=== PATIENT | male | born 1955 | race Caucasian/White ===

== ENCOUNTER 2024-01-14 10:08 | Observation (INO) | payer MEDICARE, SELFPAY ==
[2024-01-14] VITALS (13 sets, daily range): BP systolic 100–144; BP diastolic 67–94; BMI 32.5; BMI 31.8
[2024-01-14 04:42] LABS: % Eosinophils 2.7 % (0-6); % Immature Granulocytes 0.5 % (0-0.5); % Monocytes 7.8 % (1.7-9.3); Absolute Basophils 0.1 10^3/uL (0-0.2); Absolute Eosinophils 0.2 10^3/uL (0-0.7); Absolute Lymphocytes 3.9 10^3/uL (1.2-3.4); Absolute Monocytes 0.7 10^3/uL (0.1-0.6); Absolute Neutrophils 3.4 10^3/uL (1.4-6.5); Hematocrit 44.1 % (39.0-52.0); Hemoglobin 14.8 g/dL (13.0-18.0); Mean Corp Hgb Conc. 33.6 g/dL (33.0-37.0); Mean Corpuscular Hgb 29.7 pg (27.0-31.0); Mean Corpuscular Volume 88.6 fL (80.0-94.0); Mean Platelet Volume 9.2 fL (7.4-10.4); Nucleated Red Blood Cells % 0 % (-); Platelet Count 248 10^3/uL (130-400); Red Blood Cell Count 4.98 10^6/uL (4.70-6.10); Red Cell Dist. Width 12.7 % (11.5-14.5); White Blood Cell Count 8.3 10^3/uL (4.8-10.8)
[2024-01-14 04:53] LABS: INR 1.06; PT 13.6 Sec (11.4-14.6)
[2024-01-14 04:56] LABS: Glucose - Point of Care 121 mg/dl (70-99)
[2024-01-14 04:58] LABS: ALT (SGPT) 39 U/L (0-50); AST (SGOT) 56 U/L (17-59); Albumin 4.2 g/dl (3.5-5.0); Alkaline Phosphatase 78 U/L (38-126); Blood Urea Nitrogen 19 mg/dl (9-20); Calcium 8.8 mg/dl (8.4-10.2); Carbon Dioxide 27 mmol/L (22-30); Chloride 103 mmol/L (98-107); Estimated Creatinine Clearance 79 ml/min; Glucose 132 mg/dl (70-99); Potassium 3.5 mmol/L (3.5-5.1); Sodium 139 mmol/L (135-145); Total Bilirubin 0.8 mg/dl (0.2-1.3); Total Protein 6.7 g/dl (6.3-8.2); eGFR > 60.00
[2024-01-14 05:09] LABS: Troponin I < 0.012 ng/ml
--- NOTE | 2024-01-14 07:46 | ED.GENMED ---
History of Present Illness
General
Chief Complaint: Dizziness
Source: patient and spouse
Exam Limitations: none
Time Seen by Provider: 01/14/24 05:17
Nursing documentation reviewed up to this point in time: agreed with
Travel History
Have you had any contact with someone who has COVID-19?: No
Do you have any symptoms of coronavirus? Fever > 100 degrees, chills, cough, shortness of breath, sore throat, loss of taste or smell, muscle aches, or headache?: No
History of Present Illness
History of Present Illness:
68-year-old male with a past medical history of hypertension, hyperlipidemia, atrial fibrillation who presents to the emergency room for evaluation of dizziness. Of note, patient reports that he had newly diagnosed A-fib last week�he says that he
was apparently in A-fib for 5 days his wheel molder told him and he was started on Eliquis few days ago. He sees Dr. Patel through [facility]. He says that tonight he woke up suddenly with significant dizziness which prompted visit to the
emergency room. He describes a room spinning sensation. He says he had associated balance difficulties. Does not have any significant nausea and has not any vomiting. Denies any headache. Denies any loss of vision or change in his speech. He
says he did have some transient left upper extremity numbness that resolved. Denies any weakness in his extremities. He denies any similar symptoms in the past. He denies any recent illness or URI type symptoms. He denies any trauma to the head.
Past History
Past History
ED Past Medical History: HTN and Hypercholesterolemia
ED Past Surgical History: Other (Hernia repair)
Social History
Tobacco: Non-smoker
Alcohol: Occasional
Personal:
Living: with family
Employment: Employed
Family History
Family History: Other (Mother with history of atrial fibrillation)
Review of Systems
Review of Systems
All Other Systems: ROS reviewed and negative except as documented in HPI and ROS
Constitutional: Denies fever or chills
EENT: Denies sore throat or runny nose
Respiratory: Denies cough or trouble breathing
Cardiac: Denies chest pain or palpitations
ABD/GI: Denies abdominal pain, nausea or vomiting
: Denies flank pain
Musculoskeletal: Denies neck pain or back pain
Neurological: Reports dizzy; Denies headache, weakness or numbness
Phy Exam
Physical Exam
Physical Exam:
General: Awake, alert, oriented x3; no acute distress
Head: Normocephalic, atraumatic
Eyes: Conjunctiva normal, EOMI without nystagmus, pupils equal round reactive to light bilaterally, visual corral are intact
Throat: Airway intact, handling secretions
Neck: Trachea midline, supple without meningismus
Lungs: Clear to auscultation bilaterally, no wheezing, rales, rhonchi
Heart: Regular rate and rhythm, no murmurs, gallops, or rubs
Abd: Soft, non distended, nontender
Neuro: Cranial nerves intact 2 through 12, speech fluid without dysarthria or aphasia, no limb ataxia, motor and sensory function intact and symmetric upper and lower extremities
Skin: no rash
Extremities: No edema in extremities, equal pulses in all extremities
Scores
NIH Stroke Score
Level of Consciousness: 0 - Alert
LOC Questions: 0-Answers both correctly
LOC Commands: 0-Performs both correctly
Best Horizontal Gaze: 0-Normal
Visual Corral: 0=Normal, no visual loss
Facial Palsy: 0=Normal, symmetrical
Motor - Right Arm: 0=No drift 10 seconds
Motor - Left Arm: 0=No drift 10 seconds
Motor - Right Le-No drift 5 seconds
Motor - Left Le-No drift 5 seconds
Limb Ataxia: 0-Absent
Sensation: 0-Normal
Best Language: 0-No aphasia
Dysarthria: 0-Normal
Extinction and Inattention: 0-No abnormality
Total Score:: 0
Thrombolytic Contraindication
Inclusion and Exclusion criteria reviewed: Yes
Reasons for NON-Tx with Thrombolytics ABSOLUTE Exclusions: Patient taking oral anticoagulant and last dose within 48 hours
Heart Failure Risk
Heart Failure Risk Score: Not Applicable
Heart Score for Chest Pain Patients
STEMI patient?: Not applicable
Withdrawal Assessment of Alcohol
Withdrawal Assessment Completed?: Not applicable
Course
Orders/Labs/Results
Orders:
Orders
01/14/24 04:09
Electrocardiogram (*1) Urgent
Reason for Study: Atrial Fibrillation
01/14/24 04:10
EKG- Treatment ONCE
01/14/24 04:33
Complete Blood Count/With Diff Urgent
Comprehensive Metabolic Panel Urgent
INR [Prothrombin Time] Urgent
Troponin I Urgent
01/14/24 05:15
ECG [Electrocardiogram (*1)] Urgent
Reason for Study: Chest Pain
Cardiology Consult: Unknown
01/14/24 05:16
EKG- Treatment ONCE
01/14/24 05:26
CT Head & Neck Angio W/wo IV Urgent
Comment:
Reason For Exam: dizziness
01/14/24 07:07
NEUROLOGY CONSULT Urgent
Consulting Provider: Wei Thomson
Was physician already notified: Yes
Aspirin 325 mg PO NOW STA
Clopidogrel Bisulfate [Plavix] 75 mg PO NOW STA
Abnormal Lab Results
01/14/24 01/14/24
04:33 04:55
Absolute Lymphs (auto) 3.9 H 10^3/uL
(1.2-3.4)
Absolute Monos (auto) 0.7 H 10^3/uL
(0.1-0.6)
Neutrophils % 41.0 L %
(42.2-75.2)
Glucose 132 H mg/dl
(70-99)
POC Glucose 121 H mg/dl
(70-99)
01/14/24 04:33
01/14/24 04:33
Vital Signs
Initial and Last Documented VS:
Initial Vital Signs
Temp Pulse Resp BP Pulse Ox
36.8 C 76 16 144/94 99
01/14/24 04:15 01/14/24 04:15 01/14/24 04:15 01/14/24 04:15 01/14/24 04:15
Last Documented Vital Signs
Temp Pulse Resp BP Pulse Ox
36.8 C 68 20 114/78 95
01/14/24 04:15 01/14/24 06:29 01/14/24 06:29 01/14/24 06:29 01/14/24 06:29
MDM/Problems Addressed
Differential Diagnosis Includes:
Peripheral vertigo including BPPV, M�ni�re's disease, labyrinthitis; higher suspicion for central vertigo given recent new onset A-fib and lack of reproducible nystagmus
MDM/Problems Addressed:
68-year-old male with history as documented notable for newly diagnosed A-fib recently presents with acute onset dizziness this evening associate with difficulty balancing and transient left upper extremity numbness. Last normal before bed, patient
is also on oral anticoagulation and so [facility]. NIH stroke scale 0. Exam as above. Plan to place an IV check labs including a CBC and a CMP. Will check an EKG. Will send for a CT head and CTA head
and neck. Reassess after the above.
Labs reviewed: CBC unremarkable, CMP no clinically significant abnormalities. EKG shows sinus rhythm. CTA head and neck negative for any acute abnormalities. Clinical concern would be for cerebellar stroke. Will dose with aspirin and Plavix.
Discussed with neurology for consultation. Discussed with hospitalist for admission.
Chronic conditions affecting care:
Atrial fibrillation�higher risk for stroke
*Radiology
Radiology exam reviewed: radiology read reviewed
*Pulse Oximetry
Patient hypoxic: no
*EKG
Interpreted by ED Provider?: Yes
Heart Rate: 65
Rate: normal
Rhythm: sinus
Kohler: normal axis
Interval: normal interval
QRS Pattern: normal QRS
Ischemia: no ischemia
*Critical Care Note
Total Time (30-74mins, 75-104mins- exclusive of procedures): Not Applicable
Data Reviewed
Source: patient and spouse
Patient Management
Discussion with other providers: Hospitalist (Discussed with hospitalist) and Hearing Stenographer (Discussed with neurology)
Escalation/DeEscalation of care consider admission/obs:
Admission indicated
ED Attending Note
-
Portions of this chart may have been created with voice recognition software.� Occasional wrong word or��sound alike� substitutions may have occurred due to the inherent limitations of voice recognition software.
Discharge Plan
Departure
Patient Disposition: Admit
Date of Disposition: 01/14/24
Time of Disposition: 07:09
Admit to doctor: Arlene
Presentation/result/management discussed w/ accepting MD/DO: Hospitalist
Discharge Problem:
Dizziness
Prescriptions:
No Action
rosuvastatin 40 mg Tablet
40 mg PO DAILY
Eliquis
1 tab PO BID
Rx Instructions:
unsure of dose
Vitamin D3
100 mg PO DAILY
vitamin K2
1 tab PO DAILY
atenolol 50 mg Tablet
50 mg PO BID
Referrals:
Navarro Castañeda Jr., MD [Family Provider] -
Interventions
Interventions:
*Risk Screen - Suicide Last Done: 01/14/24 04:15
*General Assessment Last Done: 01/14/24 04:15
*Neglect/Abuse Screening Last Done: 01/14/24 04:15
ED- Fall Risk Assessment Last Done: 01/14/24 04:39
*ED COVID-19 Vaccine History Last Done: 01/14/24 04:15
ED- Neurological Assessment Last Done: 01/14/24 04:39
ED- Cardiac Assessment Last Done: 01/14/24 04:39
Discharge Date and Time
Print Language: JORDANIAN
--- NOTE | 2024-01-14 07:56 | CON.NEURO4 ---
Consultation - Neurology 4
-
CONSULTING PHYSICIAN: Shahab Thomson
REFERRING PHYSICIAN: ER
DICTATED BY: Shahab Thomson
DATE/TIME OF REQUEST: 01/14/24
DATE/TIME OF CONSULTATION: 01/14/24
Reason for Consultation: Dizziness, concern for stroke
History of Present Illness:
Patient is a 68-year-old man with past ministry of atrial fibrillation on apixaban, because of dizziness and walking difficulty episode beginning when getting out of bed around this morning around 3 AM.
Patient reports that he had finding of atrial fibrillation at a recent doctor's office visit based on EKG and was started on a atenolol as well as apixaban last week around Monday. Earlier last week he had also had a presumed GI viral illness
with vomiting and diarrhea abdominal pain that is mostly resolved.
Patient awoke this morning at 3 AM and when he got out of bed to go the bathroom noted that his walking was very abnormal and he also had a sensation of vertigo and dizziness, he collected himself and waited around 30 minutes and symptoms seem to
somewhat hong, but were still concerning so they came to the ER for evaluation. Patient notes chronic tinnitus but no recent hearing changes or brand-new tinnitus or hearing loss. No unusual hiccups. He feels that symptoms have improved at this
point and denies any headache diplopia dysarthria unilateral weakness or paresthesia. He has not had anything like this happen before no history of TIA or stroke. Since has been taking Eliquis he has stopped the previous aspirin 81 mg daily.
Patient had had a procedure for atrial fibrillation around 2 years ago (ablation vs cardioversion) and had come off of anticoagulation but due to finding of recurrent new atrial fibrillation was placed back on apixaban last week.
Past Medical History: Hypertension, hyperlipidemia, atrial fibrillation
Surgical History: Hernia repair
Family History: Non-contributory
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
Allergies: No known drug allergies
Review of Symptoms:
Patient denies any fever, headache, chest pain, shortness of breath, GI or symptoms.
Physical Exam:
Neurologic Examination:
The patient is awake, alert and oriented x 3. He is able to follow commands and answer questions appropriately. There is no aphasia or dysarthria. On cranial nerve assessment, pupils are 3 mm bilateral, round and reactive to light and
accommodation. Visual tovar are full. Extraocular movements are intact. Facial sensations are intact and bilaterally symmetrical, there is no facial asymmetry. Hearing is intact bilaterally to normal conversation volume. Tongue palate and uvula
are midline. Sternocleidomastoid strengths are full bilaterally. Motor strengths are 5/5 bilateral upper and lower extremities on medical research [place] scale. There is no drift or involuntary movement noted. Deep tendon reflexes are 2+ bilateral
upper and lower extremities and Babinski is absent bilaterally. Sensations of pain, touch, temperature and vibration are intact and bilaterally symmetrical. There was no extinction noted on double simultaneous stimulation. Coordination is intact by
finger to nose bilaterally.
Neuro Imaging: MRI brain with no acute or chronic infarcts
CTA head and neck with no significant vertebral or carotid stenosis, no intracranial occlusion, aneurysm or vessel malformations
Impressions
Sudden onset dizziness and vertigo happening after getting up out of bed, resolved symptoms with normal neurologic examination and normal gait and normal brain MRI without any acute stroke. Recent GI illness. Suspect this is less likely to be TIA
or symptoms of atrial fibrillation and more likely peripheral vertigo or orthostatic hypotension after the recent GI illness.
Recommendations:
1. Would stop aspirin and clopidogrel and okay to resume apixaban at his previous 5 mg twice daily dosing today
2. Goal normotension
3. Discussed signs and symptoms of stroke
4. No further workup or monitoring from a neurologic perspective recommended no barriers to discharge from my standpoint
Discussed patient care with: Patient and his , hospitalist
[2024-01-14] MEDS: ASPIRIN 325 MG PO (08:02)
--- NOTE | 2024-01-14 09:03 | HPS.HSE ---
Family Physician
-
Family Physician: Navarro Castañeda Jr., MD
Chief Complaint
-
dizziness and weakness
History of Present Illness
Patient 68-year-old male with history hypertension, hyperlipidemia, atrial fibrillation, came to the hospital with dizziness. Patient woke up this morning with sudden onset of dizziness, described as room spinning around his head associated with
balance difficulties, no nausea or vomiting, no headache. He complains of numbness in his left upper extremity but he says that these are chronic symptoms. He denies any focal weakness. He feels back to his baseline. He denies any fevers or
chills. He denies any chest pain or shortness of breath. He did have some nausea vomiting likely GI viral illness recently but resolved. He tells me he has A-fib about 3 years ago and had recurrence of complaints recently and has been managed by
his outpatient online media director. He recently increased his doses of atenolol and started on Eliquis by his cardiology advice. In the ED, CT of the head and neck unremarkable. Neurology consulted. Brain MRI ordered. He was referred to hospitalist
for further evaluation.
Medical History
Past Medical History
Past Medical History: Reports Other (Hypertension, hyperlipidemia, atrial fibrillation.)
Past Surgical History: Reports None
Social History
Tobacco: Non-smoker
Alcohol: None
Drug: None
Family History
Family History: Not pertinent
Allergies / Home Medications
Allergies reflects when Allergies were last updated in [employer].
Home Medications with original date entered in [employer]
Allergy/Medication List:
Allergies
Allergy/AdvReac Type Severity Reaction Status Date / Time
No Known Allergies Allergy Unverified 06/08/23 22:07
Home Medications
Eliquis 1 tab PO BID 01/14/24
Vitamin D3 100 mg PO DAILY 01/14/24
atenolol 50 mg tablet 50 mg PO BID 01/14/24
rosuvastatin 40 mg tablet 40 mg PO DAILY 01/14/24
vitamin K2 1 tab PO DAILY 01/14/24
Review of Systems
-
A 12 point ROS was completed and negative except as noted: Yes
Physical Exam
Vital Signs
Vital Signs
Temp Pulse Resp BP Pulse Ox
98.2 F 62 18 117/86 97
01/14/24 04:15 01/14/24 08:15 01/14/24 08:15 01/14/24 08:00 01/14/24 08:00
Physical exam:
General: No acute distress
HEENT: Normocephalic, Atraumatic and Moist Mucous Membranes
Respiratory: Clear to Auscultation; Negative Wheezes, Rales or Rhonchi
Cardiac: Regular Rhythm and S1/S2, mild systolic murmur
GI: Soft, Nontender and Nondistended
Musculoskeletal: No Clubbing, No Cyanosis and No Edema
Neuro: Awake, Alert and Oriented, no gross neurological deficits.
Psych: Calm
Physical Exam
General: Other
Laboratory Results
-
01/14/24 04:33
01/14/24 04:33
Laboratory Results
PT 13.6 Sec (11.4-14.6) 01/14/24 04:33
INR 1.06 01/14/24 04:33
Total Bilirubin 0.8 mg/dl (0.2-1.3) 01/14/24 04:33
AST 56 U/L (17-59) 01/14/24 04:33
ALT 39 U/L (0-50) 01/14/24 04:33
Alkaline Phosphatase 78 U/L (38-126) 01/14/24 04:33
Troponin I < 0.012 ng/ml 01/14/24 04:33
Impression/Plan
-
IMPRESSION:
Patient 68-year-old male with history of A-fib, hypertension, hyperlipidemia, presented to the hospital with dizziness. Symptoms are not consistent with acute stroke. Patient might have symptoms related to dehydration with recent GI viral illness
or alternatively due to increased doses of his beta-blockers or possible orthostatic. He is currently in normal sinus rhythm.
Impression:
Dizziness, nonspecific
Conditions prior to presentation:
Hypertension
Hyperlipidemia
Paroxysmal atrial fibrillation
PLAN:
Observation status
Given IV fluids in the ED. Encourage oral intake from now on.
Initially aspirin Plavix and now MRI of the brain back and no acute stroke so we will restart Eliquis.
Seen and reviewed CT of the head and neck and MRI of the brain.
Seen and reviewed twelve-lead EKG.
Appreciate neurology consult
Neurology cleared him for discharge today
Cardiology consulted and they recommend to decrease atenolol back to 50 mg once a day
Cardiology also cleared her for discharge today
He was observed here in on staff development manager and if he feels asymptomatic, plan to discharge home today
DVT prophylaxis with Lovenox SQ
CODE STATUS full code
[2024-01-14 09:19] LABS: HDL Cholesterol 40 mg/dl; LDL Cholesterol, Calculated 61 mg/dl; Total Cholesterol 119 mg/dl (50-199); Triglyceride 93 mg/dl (10-149); Very Low Density Lipoprotein 18 mg/dl (0-30)
[2024-01-14 11:40] LABS: Glycohemoglobin (HgbA1c) 5.8 % (4.0-5.6)
--- NOTE | 2024-01-14 13:44 | CM ---
CM following re: discharge planning.
CM consulted to assist pt with discharge planing.
Reviewed pt's chart, met with pt in ED and pt's spouse at bedside.
Pt is a 68 year old male, admitted with OBS status and primary dx of R/O CVA. OBS status explained to pt and his spouse, they expressed their understanding, signed WALLACE letter placed in CM office binder, pt has a copy.
Pt reports he lives with spouse in a 2SH townhouse, has 4 supportive children. 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 Pt expressed his desire to return back home at discharge and he feels he will not have any
physical limitation.
PT and OT will evaluate the pt to determine a level of are at discharge.
PCP: Navarro Castañeda
Pharmacy: [facility].
D/C plan: home with anticipated no needs. Spouse to transport at discharge.
CM will follow with discharge plan updates as hospitalization progresses
--- NOTE | 2024-01-14 14:31 | CON.CAR ---
Consultation
Consultation Request
Date/Time Consultation Requested: 01/14/24 7:00AM
Date/Time Consultation Performed: 01/14/24 1:00PM
Requesting Provider: Dr. Mahmood
Performing Provider: Dr. Wynn
Reason for Consultation: Afib
Medical History
-
Chief Complaint: dizziness
History of Present Illness:
68-year-old male with past medical history of hypertension, hyperlipidemia and paroxysmal atrial fibrillation who follows at [facility] presents with dizziness. He states he has a remote history of paroxysmal atrial fibrillation but had not
had any in 2 years until about a week ago. He started having some palpitations and felt his A-fib again. He had no chest pains or shortness of breath. He called his tray filler at [place] who recommended to increase his atenolol to 50 mg twice
daily. He was also placed on Eliquis. He felt well although he did have a mild dizziness 2 days ago. He played 18 holes of golf yesterday and felt well then early in the morning he felt very weak and dizzy and lightheaded. He felt like he was
about to pass out and had near syncope. He states he did convert back to sinus rhythm yesterday as well. He presented to the emergency room with weakness and lightheadedness. His blood pressure was stable upon arrival.
Past Medical History
Past Medical History: Arrhythmias (Paroxysmal atrial fibrillation), HTN and Hypercholesterolemia
Past Surgical History: None
Social History
Tobacco: Non-Smoker
Alcohol: Occasional
Drug: None
Personal:
Living: With Family
Family History
Family History: Hypertension
Allergies / Home Medications
Allergy/AdvReac Type Severity Reaction Status Date / Time
No Known Allergies Allergy Unverified 06/08/23 22:07
�Medication �Instructions �Recorded �Confirmed �Type
apixaban 5 mg tablet (Eliquis) 5 mg PO BID 01/14/24 01/14/24 History
ascorbic acid (vitamin C) 500 mg 500 mg PO DAILY 01/14/24 01/14/24 History
tablet (Vitamin C)
atenolol 50 mg tablet 50 mg PO BID 01/14/24 01/14/24 History
rosuvastatin 20 mg tablet (Crestor) 20 mg PO QPM 01/14/24 01/14/24 History
vitamin D3 125 mcg (5,000 1 cap PO DAILY 01/14/24 01/14/24 History
unit)-vitamin K2 90 mcg capsule
Review of Systems
-
History Source: Patient
Constitutional: Fatigue
EENT: No Symptoms
Respiratory: No Symptoms
Cardiac: Palpitations
Abdomen/GI: No Symptoms
: No Symptoms
Musculoskeletal: No Symptoms
Skin: No Symptoms
Neurological: Dizzy
Endocrine: No Symptoms
Hematologic/Lymphatic: No Symptoms
Physical Exam
Vital Signs
Temp Pulse Resp BP Pulse Ox
98.2 F 55 12 100/67 97
01/14/24 04:15 01/14/24 14:00 01/14/24 14:00 01/14/24 14:00 01/14/24 08:00
Lab Results
01/14/24 04:33
01/14/24 04:33
Troponin I < 0.012 ng/ml 01/14/24 04:33
Physical Exam
General: Well Developed and Well Nourished
HEENT: Normocephalic and Anicteric
Respiratory: Clear and Non Labored Respirations
Cardiac: S1/S2, Regular Rhythm and Murmur (10/21 syst LSB)
GI: Soft, Non Tender and Non Distended
Musculoskeletal: No Edema
Skin: Warm and Dry
Neuro: AO x 3
Psych: Calm
Impression / Plan
-
Assess:
Paroxysmal atrial fibrillation
Dizziness/near syncope
Hypertension
Hyperlipidemia
MRI of the brain with no acute stroke. Minor white matter changes
CTA of the neck/head: No significant carotid or vertebral plaque or stenosis
Plan:
He presents with an episode of dizziness/near syncope. He was having episodes of paroxysmal atrial fibrillation but these have resolved and he is back in sinus rhythm. MRI of the brain overall unremarkable with no significant stroke
I would decrease his atenolol back to 50 mg once daily. If okay with neurology and I would stop aspirin and Plavix and restart his Eliquis 5 mg p.o. twice daily.
From a cardiac standpoint he is stable to be discharged. He has an appointment with his outpatient tray filler at [facility] this week to further discuss management of his atrial fibrillation.
Data Reviewed
-
EKG: Tracing Personally Visualized and interpreted
Radiology: Report Reviewed by me
Medical Tests (Nuc Med, Echo etc): Report Reviewed by me
Labs: Labs Reviewed by me
--- NOTE | 2024-01-14 14:54 | W.DCSUMMARY ---
Discharge Summary
Discharge Data
Date of Admission: 01/14/24
Date of Discharge: 01/14/24
-
Pending Results: No
Hospital Course
Patient 68-year-old man with history of hypertension, hyperlipidemia, paroxysmal atrial fibrillation presented to the hospital with dizziness. Patient had transient episode of dizziness and had workup including MRI of the brain negative for acute
stroke. He was seen by neurology and cardiology today. Also received some IV fluid hydration in the setting of possible gastroenteritis recently. Neurology recommended initially aspirin Plavix but after MRI results back they recommended to go
back to his Eliquis. Cardiology saw the patient and recommended to decrease his doses of atenolol from twice a day to once a day. Otherwise neurology and cardiology both cleared him for discharge today. He feels back to baseline at this point.
He is going to be discharged in stable condition today. He is to follow-up with PCP and he is on outpatient parts and service manager (I placed our parts and service manager and neurologist names on discharge in case he would like to follow-up with them).
Discharge Plan
-
Patient Disposition: Home (Routine Discharge)
Discharge Diagnosis/Procedures: Dizziness. Paroxysmal atrial fibrillation.
Diet: Low Cholesterol
Activity: As tolerated
Driving Restrictions: As prior to admission
Blood Work: Please PCP to order CBC, BMP within 1 week
Referrals:
Wei Thomson MD [Active] - in one to two months
Syed Wynn MD [Active] - in one to two months
Navarro Castañeda Jr., MD [Family Provider] - in less than 1 week
Prescriptions:
Continued
Eliquis 5 mg Tablet
5 mg PO BID
Rx Instructions:
unsure of dose
vitamin D3-vitamin K2 125-90 mcg Capsule
1 cap PO DAILY
ascorbic acid (vitamin C) [Vitamin C] 500 mg Tablet
500 mg PO DAILY
rosuvastatin [Crestor] 20 mg Tablet
20 mg PO QPM
Changed
atenolol 50 mg Tablet
50 mg PO DAILY Qty: 0 0RF
Discharge Orders:
Discharge Patient (As Directed); Ordered 01/14/24
Ordered By: Adan Mahmood
Discharge Date and Time
Print Language: CENTRAL AFRICAN
--- NOTE | 2024-01-14 15:40 | CM ---
Addendum entered by Sarah Rodgers 01/14/24 15:44:
Signed IMM on Chart
Original Note:
Met with patient at bedside
Plan: discharge to home without services; family will provide tranport home
--- NOTE | 2024-01-14 16:21 | PTCARENOTE ---
1530 Received patient from ED AAOx3. NIH-0. Pt oriented to room. RN received phone call from Dr. Mahmood that patient was cleared to be discharged. IV site removed. Tele-removed and patient given discharge instructions.
== END 2024-01-14 16:15 | disposition home or self-care (01) ==
LOC: 4 EAST ACU 10:08
PROVIDERS: ADMITTING PHYSICIAN Hospitalist; CONSULT PHYSICIAN Internal Medicine Cardiovascular Disease; CONSULT PHYSICIAN Student in an Organized Health Care Education/Training Program; EMERGENCY PHYSICIAN Emergency Medicine; FAMILY PHYSICIAN Family Medicine
DX: R42 Dizziness and giddiness (principal); E78.00 Pure hypercholesterolemia, unspecified; I10 Essential (primary) hypertension; I48.0 Paroxysmal atrial fibrillation; Z79.01 Long term (current) use of anticoagulants; Z79.899 Other long term (current) drug therapy
CPT/HCPCS: 70496; 70498; 70551; 80053; 80061; 82962; 83036; 84484; 85025; 85610; 93005; 99285; G0378; Q9967

== ENCOUNTER 2024-02-07 08:01 | Emergency (ER) | payer MEDICARE, SELFPAY ==
[2024-02-07 08:02] VITALS: BMI 30.4
[2024-02-07 08:03] VITALS: BP 110/78
--- NOTE | 2024-02-07 08:13 | ED.GENMED ---
History of Present Illness
<Khalida Aparicio LOT TECHNICIAN - Last Filed: 02/08/24 08:08>
General
Chief Complaint: Back Pain
Source: patient
Exam Limitations: none
Time Seen by Provider: 02/07/24 08:12
Nursing documentation reviewed up to this point in time: agreed with
Travel History
Have you had any contact with someone who has COVID-19?: No
Do you have any symptoms of coronavirus? Fever > 100 degrees, chills, cough, shortness of breath, sore throat, loss of taste or smell, muscle aches, or headache?: No
History of Present Illness
History of Present Illness:
68-year-old male with history of A-fib on Eliquis, HTN, HLD presents stating for past week has had off and on mid chest heaviness, mid back pain and since 9 p.m.last night 'numbness' in both arms. The back and chest pains are intermittent,
'stabbing, burning, squeezing' now 5/10, arms currently feel 'numb' L > R. Pains at max were 8/10 while driving yesterday. No aggravating or relieving factors. Denies abd pain, n/v/d/c.
For past week, getting up in middle of night to BR Left leg 'goes numb.'
AGOSTO past 3 days. He did play golf yesterday and felt 'I needed to catch my breath' while walking.
Plays tennis 3 x a week and felt well playing 3 days ago.
History of a fib 2.5 years ago which resolved on its own, was on Baby ASA. 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
Meds: Eliquis
Metoprolol 50 mg daily upped to BID 10/2023
Rosuvastatin 10 mg OD
Past History
<Khalida Aparicio LOT TECHNICIAN - Last Filed: 02/08/24 08:08>
Past History
ED Past Medical History: Arrthythmia (A fib), HTN and Hypercholesterolemia
ED Past Surgical History: Other (Hernia repair)
Social History
Tobacco: Non-smoker
Alcohol: Occasional
Personal:
Living: with family
Employment: Employed
Family History
Family History: Other (Mother with history of atrial fibrillation)
Review of Systems
<Khalida Aparicio LOT TECHNICIAN - Last Filed: 02/08/24 08:08>
Review of Systems
Allergies reviewed?: Yes
All Other Systems: ROS reviewed and negative except as documented in HPI and ROS
Constitutional: Reports no symptoms
EENT: Reports no symptoms
Respiratory: Reports trouble breathing (feels he has to take deep breaths when walking past week)
Cardiac: Reports chest pain; Denies diaphoresis, palpitations or syncope
ABD/GI: Denies abdominal pain, nausea, vomiting, diarrhea or anorexia
: Denies dysuria, frequency or difficulty voiding
Musculoskeletal: Reports no symptoms
Skin: Reports no symptoms
Neurological: Reports weakness and numbness (both arms since last p.m. L leg intermittently past 2 weeks); Denies headache
Phy Exam
<Khalida Aparicio, LOT TECHNICIAN - Last Filed: 02/08/24 08:08>
Physical Exam
Physical Exam:
GENERAL: No acute distress. A&Ox3.
CONSTITUTIONAL: Afebrile.
EYES: clear, conjunctivae normal
Neck: Supple
ENMT: moist mucus membranes, Pharynx nl
RESPIRATORY: Regular respirations, nonlabored, lungs clear.
CARDIOVASCULAR: Regular rate and rhythm, no murmurs, no rubs. Radial and pedal pulses normal. Extremities warm, pink.
GI: Soft, nontender, normal BS
MUSCULOSKELETAL: Moves with ease. Well perfused. No edema
SKIN: Warm, dry, pink
PSYCH: Normal mood and affect. Well kept, interactive and appropriate
NEUROLOGIC: Awake, alert and oriented. No focal neurological deficits
Course
<Khalida Aparicio NP - Last Filed: 02/08/24 08:08>
Orders/Labs/Results
Orders:
Orders
02/07/24 08:04
ECG [Electrocardiogram (*1)] Urgent
Reason for Study: Other
Other Reason for Exam: back pain
02/07/24 08:05
EKG- Treatment ONCE
02/07/24 08:47
CT Chest/abd/pelvis Angio W/wo Urgent
Comment:
Reason For Exam: numbness arms, CP and mid back pain
02/07/24 08:49
0.9% Sodium Chloride 500 ml [Nss] 500 ml IV BOLUS
02/07/24 09:18
Complete Blood Count/With Diff Urgent
Comprehensive Metabolic Panel Urgent
Troponin I Urgent
02/07/24 09:18
02/07/24 09:18
Vital Signs
Initial and Last Documented VS:
Initial Vital Signs
Temp Pulse Resp BP Pulse Ox
97.9 F 57 18 110/78 93
02/07/24 08:03 02/07/24 08:03 02/07/24 08:03 02/07/24 08:03 02/07/24 08:03
Last Documented Vital Signs
Temp Pulse Resp BP Pulse Ox
97.9 F 53 20 137/91 97
02/07/24 08:03 02/07/24 11:30 02/07/24 11:30 02/07/24 11:14 02/07/24 11:14
Manager Unix consulted with Physician
Manager Unix consulted with physician?: Yes
Name of Physician Consulted: Pamela
<Mauricio Santiago MD - Last Filed: 02/07/24 08:52>
Orders/Labs/Results
Orders:
Orders
02/07/24 08:04
ECG [Electrocardiogram (*1)] Urgent
Reason for Study: Other
Other Reason for Exam: back pain
02/07/24 08:05
EKG- Treatment ONCE
02/07/24 08:47
CT Chest/abd/pelvis Angio W/wo Urgent
Comment:
Reason For Exam: numbness arms, CP and mid back pain
02/07/24 08:49
0.9% Sodium Chloride 500 ml [Nss] 500 ml IV BOLUS
02/07/24 09:18
Complete Blood Count/With Diff Urgent
Comprehensive Metabolic Panel Urgent
Troponin I Urgent
02/07/24 09:18
02/07/24 09:18
Vital Signs
Initial and Last Documented VS:
Initial Vital Signs
Temp Pulse Resp BP Pulse Ox
97.9 F 57 18 110/78 93
02/07/24 08:03 02/07/24 08:03 02/07/24 08:03 02/07/24 08:03 02/07/24 08:03
Last Documented Vital Signs
Temp Pulse Resp BP Pulse Ox
97.9 F 53 20 137/91 97
02/07/24 08:03 02/07/24 11:30 02/07/24 11:30 02/07/24 11:14 02/07/24 11:14
<Khalida Aparicio, LOT TECHNICIAN - Last Filed: 02/08/24 08:08>
MDM/Problems Addressed
Differential Diagnosis Includes:
GA, cervical radiculopathy, AAA, musculoskeletal pain
MDM/Problems Addressed:
68-year-old male with history of A-fib on Eliquis, HTN, HLD presents stating for past week has had off and on mid chest heaviness, mid back pain and since 9 p.m.last night 'numbness' in both arms. The back and chest pains are intermittent,
'stabbing, burning, squeezing' now 10, arms currently feel 'numb' L > R. Pains at max were 8/10 while driving yesterday. No aggravating or relieving factors. Denies abd pain, n/v/d/c.
For past week, getting up in middle of night to BR Left leg 'goes numb.'
AGOSTO past 3 days. He did play golf yesterday and felt 'I needed to catch my breath' while walking.
Plays tennis 3 x a week and felt well playing 3 days ago.
History of a fib 2.5 years ago, which resolved on its own, was on Baby ASA. 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
NAD
Case discussed with Dr. Santiago who examined pt.
EKG sinus bradycardia
10:00 AM
CBC normal
CMP normal
Troponin normal.
11:15 AM
CTA chest abdomen pelvis radiology report read: IMPRESSION:
1. There is no CT evidence of aneurysm or dissection.
2. There is a small right hepatic cyst.
3. There is a large left renal cyst
Copies of all results given to patient
Patient has an appointment with his primary next month and he was going to get an order for physical therapy for his neck
Now that medically cleared, I provided patient with an order for physical therapy here at [facility] he will call and make an appointment.
Dr. Santiago agrees with assessment and plan
<Khalida Aparicio NP - Last Filed: 02/08/24 08:08>
*EKG
Interpreted by ED Provider?: Yes
EKG Intrepretation Date: 02/07/24
Rate: bradycardiac
Rhythm: sinus
[place]: normal axis
Interval: normal interval
QRS Pattern: normal QRS
Ischemia: no ischemia
*Critical Care Note
Total Time (30-74mins, 75-104mins- exclusive of procedures): Not Applicable
ED Attending Note
<Khalida Aparicio NP - Last Filed: 02/08/24 08:08>
-
Portions of this chart may have been created with voice recognition software.� Occasional wrong word or��sound alike� substitutions may have occurred due to the inherent limitations of voice recognition software.
<Mauricio Santiago MD - Last Filed: 02/07/24 08:52>
ED Attending Note
Patient seen and examined by attending physician: Yes
ED Attending Note:
I have seen and evaluated the patient with a [id number] encounter. I have spoken to the advance practicer provider and involved in the medical history, the physical exam, medical decision making.
Evaluation and management service: agree unless noted differently below.
Results interpretation: agree unless noted differently below.
Focused HPI: 68-year-old male with a past medical history of hypertension, hyperlipidemia, atrial fibrillation on Eliquis who presents to the emergency department for evaluation of chest pain, shortness of breath, back pain and arm numbness.
Patient reports onset of symptoms few days ago and they have been essentially constant since that time. He reports heaviness in his chest with squeezing sensation radiating to his upper back (intrascapular). He reports associated shortness of
breath. He says he has numbness/paresthesias in the bilateral upper extremities. Says last night he had trouble sleeping from the symptoms and decided to come to the emergency room for assessment. He denies any abdominal pain, nausea, vomiting.
He denies any recent cough, fevers, chills. No swelling or pain in the legs. He says that he played tennis a few days ago and had no chest pain or exertional symptoms.
Physical exam: Awake and alert, anxious. Not in distress. Vital signs all within normal limits. He has no cardiac rubs gallops or murmurs. Lungs clear to auscultation bilaterally. Abdomen soft nontender with no palpable masses. He has good
pulses in all extremities including symmetric bilateral radial pulses, femoral pulses. Is no notable edema in his lower extremities. He has no reproducible tenderness in his upper back in the area of concern.
Medical Decision Makin-year-old male presents for evaluation of atypical chest pain and upper back pain associated with some shortness of breath and bilateral hand numbness. Ongoing for the past 2 to 3 days, somewhat worse last night. Vital
signs normal. Exam as above. Plan to place IV check labs including a CBC and a CMP. Check an EKG and troponin. Will send for CTA of the chest to rule out aortic dissection. Monitor closely on telemetry and continuous pulse oximetry, reassess as
the above.
Discharge Plan
Departure
Patient Disposition: Home (Routine Discharge)
Date of Disposition: 02/07/24
Time of Disposition: :29
Patient with high blood pressure during this ER visit?: No
Condition: Good
Discharge Problem:
Cervical radiculopathy, acute, Atypical chest pain
Instructions: Chest Pain That Is Not Caused by the Heart (DC), Radiculopathy (DC)
Prescriptions:
No Action
Eliquis 5 mg Tablet
5 mg PO BID
ascorbic acid (vitamin C) [Vitamin C] 500 mg Tablet
500 mg PO DAILY
rosuvastatin [Crestor] 20 mg Tablet
20 mg PO QPM
atenolol 50 mg Tablet
50 mg PO DAILY Qty: 0 0RF
sildenafil 100 mg Tablet
100 mg PO DAILYPRN PRN (Reason: ED )
cholecalciferol (vitamin D3) [Vitamin D3] 25 mcg (1,000 unit) Tablet
25 mcg PO DAILY
Referrals:
Navarro Castañeda Jr., MD [Family Provider] - Keep scheduled appt
Scott Patel DO [Non-Admitting Privileges] - Keep scheduled appt
Activity Restrictions/Additional Instructions:
As we discussed, nothing worrisome in your workup here today.
Your arm numbness may be from the mid thoracic spine degenerative changes.
Make appointment for P/T
Interventions
Interventions:
*Risk Screen - Suicide Last Done: 02/07/24 09:29
*General Assessment Last Done: 02/07/24 09:29
*Neglect/Abuse Screening Last Done: 02/07/24 09:29
*ED COVID-19 Vaccine History Last Done: 02/07/24 08:03
*Nursing Disposition Last Done: 02/07/24 12:23
ED-Musculoskeletal Assessment Last Done: 02/07/24 09:29
Discharge Date and Time
Discharge Date/Time: 02/07/24 12:24
Print Language: SENEGALESE
[2024-02-07] MEDS: NSS 500 IV (09:00)
[2024-02-07 09:11] VITALS: BP 133/86
[2024-02-07 09:27] LABS: % Basophils 0.8 % (0-2); % Eosinophils 2.2 % (0-6); % Immature Granulocytes 0.4 % (0-0.5); % Neutrophils 65.6 % (42.2-75.2); Absolute Eosinophils 0.1 10^3/uL (0-0.7); Absolute Lymphocytes 1.3 10^3/uL (1.2-3.4); Absolute Monocytes 0.3 10^3/uL (0.1-0.6); Absolute Neutrophils 3.3 10^3/uL (1.4-6.5); Hematocrit 40.9 % (39.0-52.0); Hemoglobin 14.3 g/dL (13.0-18.0); Mean Corpuscular Hgb 29.9 pg (27.0-31.0); Mean Corpuscular Volume 85.4 fL (80.0-94.0); Mean Platelet Volume 9.6 fL (7.4-10.4); Nucleated Red Blood Cells % 0 % (-); Platelet Count 183 10^3/uL (130-400); Red Blood Cell Count 4.79 10^6/uL (4.70-6.10); Red Cell Dist. Width 13.1 % (11.5-14.5)
[2024-02-07 09:42] LABS: ALT (SGPT) 25 U/L (0-50); AST (SGOT) 52 U/L (17-59); Alkaline Phosphatase 58 U/L (38-126); Blood Urea Nitrogen 13 mg/dl (9-20); Calcium 8.9 mg/dl (8.4-10.2); Carbon Dioxide 28 mmol/L (22-30); Chloride 106 mmol/L (98-107); Estimated Creatinine Clearance 96 ml/min; Glucose 96 mg/dl (70-99); Potassium 4.3 mmol/L (3.5-5.1); Sodium 136 mmol/L (135-145); Total Bilirubin 0.8 mg/dl (0.2-1.3); Total Protein 6.4 g/dl (6.3-8.2); eGFR > 60.00
[2024-02-07 09:50] LABS: Troponin I < 0.012 ng/ml
[2024-02-07 10:00] VITALS: BP 126/95
[2024-02-07 11:14] VITALS: BP 137/91
== END 2024-02-07 12:24 | disposition home or self-care (01) ==
LOC: EMR 08:01
PROVIDERS: Registered Nurse; EMERGENCY PHYSICIAN Emergency Medicine; FAMILY PHYSICIAN Family Medicine
DX: R07.89 Other chest pain (principal); M54.12 Radiculopathy, cervical region; I10 Essential (primary) hypertension; E78.00 Pure hypercholesterolemia, unspecified; I48.91 Unspecified atrial fibrillation; Z79.01 Long term (current) use of anticoagulants
CPT/HCPCS: 99285; 96360; 96361; 71275; 74174; 80053; 84484; 85025; 93005; Q9967

== ENCOUNTER 2024-03-12 17:21 | Outpatient (RCR) | payer MEDICARE, SELFPAY | END 2024-03-12 23:59 | disposition home or self-care (01) | LOC: RPT 17:21 | PROVIDERS: ATTENDING PHYSICIAN Registered Nurse; FAMILY PHYSICIAN Family Medicine | DX: M54.2 Cervicalgia (principal); M51.34 Other intervertebral disc degeneration, thoracic region; M79.602 Pain in left arm; Z73.6 Limitation of activities due to disability | CPT/HCPCS: 97010; 97110; 97112; 97140; 97161 ==

== ENCOUNTER 2024-08-11 16:21 | Emergency (ER) | payer MEDICARE, SELFPAY ==
[2024-08-11 16:28] VITALS: BP 122/79
[2024-08-11 16:42] VITALS: BMI 31.8
[2024-08-11 16:59] LABS: % Basophils 0.6 % (0-2); % Eosinophils 0.8 % (0-6); % Immature Granulocytes 0.4 % (0-0.5); % Lymphocytes 17.1 % (20.5-51.1); % Monocytes 5.8 % (1.7-9.3); % Neutrophils 75.3 % (42.2-75.2); Absolute Basophils 0.1 10^3/uL (0-0.2); Absolute Eosinophils 0.1 10^3/uL (0-0.7); Absolute Lymphocytes 1.6 10^3/uL (1.2-3.4); Absolute Monocytes 0.6 10^3/uL (0.1-0.6); Absolute Neutrophils 7.2 10^3/uL (1.4-6.5); Hematocrit 43.5 % (39.0-52.0); Hemoglobin 15.2 g/dL (13.0-18.0); Mean Corp Hgb Conc. 34.9 g/dL (33.0-37.0); Mean Corpuscular Hgb 29.4 pg (27.0-31.0); Mean Corpuscular Volume 84.1 fL (80.0-94.0); Mean Platelet Volume 9.3 fL (7.4-10.4); Nucleated Red Blood Cells % 0 % (-); Platelet Count 214 10^3/uL (130-400); Red Blood Cell Count 5.17 10^6/uL (4.70-6.10); Red Cell Dist. Width 12.9 % (11.5-14.5); White Blood Cell Count 9.5 10^3/uL (4.8-10.8)
[2024-08-11 17:10] LABS: INR 1.13; PT 14.3 Sec (11.4-14.6)
[2024-08-11 17:11] LABS: APTT 32.6 Sec (23.4-35.0)
[2024-08-11 17:13] LABS: ALT (SGPT) 30 U/L (0-50); AST (SGOT) 59 U/L (17-59); Albumin 4.4 g/dl (3.5-5.0); Alkaline Phosphatase 53 U/L (38-126); Blood Urea Nitrogen 19 mg/dl (9-20); Calcium 8.9 mg/dl (8.4-10.2); Carbon Dioxide 27 mmol/L (22-30); Chloride 102 mmol/L (98-107); Estimated Creatinine Clearance 79 ml/min; Glucose 113 mg/dl (70-99); Potassium 4.3 mmol/L (3.5-5.1); Sodium 139 mmol/L (135-145); Total Protein 7.1 g/dl (6.3-8.2); eGFR > 60.00
[2024-08-11] MEDS: NSS 500 IV (17:25)
[2024-08-11 17:26] LABS: Troponin I < 0.012 ng/ml
[2024-08-11 18:06] VITALS: BP 112/74
--- NOTE | 2024-08-11 18:20 | ED.GENMED ---
History of Present Illness
<JONATHAN Espinoza Jr. Last Filed: 08/11/24 20:51>
General
Chief Complaint: Heart Rate Problem
Source: patient
Exam Limitations: none
Time Seen by Provider: 08/11/24 16:46
Nursing documentation reviewed up to this point in time: agreed with
History of Present Illness
History of Present Illness:
68-year-old male with past medical history of atrial fibrillation currently on Eliquis, hypertension hyperlipidemia presenting to the emergency department today with concerns of fluttering heartbeat starting last night associated mild shortness of
breath. Denies any chest pain has been taking his Eliquis. Does have a history of A-fib feels similar to previous episodes. Goes into atrial fibrillation infrequently.
Past History
<JONATHAN Espinoza Jr. Last Filed: 08/11/24 20:51>
Past History
ED Past Medical History: Arrthythmia (A fib), HTN and Hypercholesterolemia
ED Past Surgical History: Other (Hernia repair)
Social History
Tobacco: Non-smoker
Alcohol: Occasional
Personal:
Living: with family
Employment: Employed
Family History
Family History: Other (Mother with history of atrial fibrillation)
Review of Systems
<JONATHAN Espinoza Jr. Last Filed: 08/11/24 20:51>
Review of Systems
Allergies reviewed?: Yes
All Other Systems: ROS reviewed and negative except as documented in HPI and ROS
Phy Exam
<JONATHAN Espinoza Jr. Last Filed: 08/11/24 20:51>
Physical Exam
Physical Exam:
GENERAL: Alert , in no apparent distress
EYE: pupils equal and reactive
NECK: Supple, no significant adenopathy.
ENT: o/p clr, mmm.
CARDIAC: Irregularly irregular
LUNGS: Clear breath sounds bilaterally, no acute respiratory distress, no wheezes/rales/rhonchi
ABDOMEN: Soft, without focal tenderness, no r/g, no cvat
NEUROLOGICAL: Alert and oriented, no focal neuro deficits
SKIN: Warm and dry, skin intact.
MUSCULOSKELETAL: No edema, well perfused.
PSYCH: Normal and appropriate interaction.
Course
<Elton Bajwa Jr., PA-C - Last Filed: 08/11/24 20:51>
Orders/Labs/Results
Orders:
Orders
08/11/24 16:22
EKG [Electrocardiogram (*1)] Urgent
Reason for Study: Palpitations
08/11/24 16:23
EKG- Treatment ONCE
08/11/24 16:47
Complete Blood Count/With Diff Urgent
Comprehensive Metabolic Panel Urgent
PT/INR [Prothrombin Time] Urgent
PTT Urgent
Troponin I Urgent
08/11/24 17:19
0.9% Sodium Chloride 500 ml [Nss] 500 ml IV BOLUS
Abnormal Lab Results
08/11/24
16:47
Absolute Neuts (auto) 7.2 H 10^3/uL
(1.4-6.5)
Neutrophils % 75.3 H %
(42.2-75.2)
Lymphocytes % 17.1 L %
(20.5-51.1)
Glucose 113 H mg/dl
(70-99)
08/11/24 16:47
08/11/24 16:47
Vital Signs
Initial and Last Documented VS:
Initial Vital Signs
Temp Pulse Resp BP Pulse Ox
98.6 F 91 16 122/79 97
08/11/24 16:28 08/11/24 16:28 08/11/24 16:28 08/11/24 16:28 08/11/24 16:28
Last Documented Vital Signs
Temp Pulse Resp BP Pulse Ox
98.6 F 99 27 112/74 97
08/11/24 16:28 08/11/24 18:30 08/11/24 18:30 08/11/24 18:06 08/11/24 16:28
<Luis Nunn MD - Last Filed: 08/11/24 18:44>
Orders/Labs/Results
Orders:
Orders
08/11/24 16:22
EKG [Electrocardiogram (*1)] Urgent
Reason for Study: Palpitations
08/11/24 16:23
EKG- Treatment ONCE
08/11/24 16:47
Complete Blood Count/With Diff Urgent
Comprehensive Metabolic Panel Urgent
PT/INR [Prothrombin Time] Urgent
PTT Urgent
Troponin I Urgent
08/11/24 17:19
0.9% Sodium Chloride 500 ml [Nss] 500 ml IV BOLUS
Abnormal Lab Results
08/11/24
16:47
Absolute Neuts (auto) 7.2 H 10^3/uL
(1.4-6.5)
Neutrophils % 75.3 H %
(42.2-75.2)
Lymphocytes % 17.1 L %
(20.5-51.1)
Glucose 113 H mg/dl
(70-99)
08/11/24 16:47
08/11/24 16:47
Vital Signs
Initial and Last Documented VS:
Initial Vital Signs
Temp Pulse Resp BP Pulse Ox
98.6 F 91 16 122/79 97
08/11/24 16:28 08/11/24 16:28 08/11/24 16:28 08/11/24 16:28 08/11/24 16:28
Last Documented Vital Signs
Temp Pulse Resp BP Pulse Ox
98.6 F 99 27 112/74 97
08/11/24 16:28 08/11/24 18:30 08/11/24 18:30 08/11/24 18:06 08/11/24 16:28
<Elton Bajwa Jr., PA-C - Last Filed: 08/11/24 20:51>
MDM/Problems Addressed
MDM/Problems Addressed:
68-year-old male presenting to the emergency department with concerns of episode of atrial fibrillation. Here heart rate is controlled in the 90s otherwise vital signs are normal. Patient well-appearing in no distress. Patient is taking Eliquis
workup without emergent labs or troponin level. No signs of ischemia on EKG. Patient was offered cardioversion but he declined and claims that he would rather follow-up with his borematic operator for further management as an outpatient. Return
precautions given.
<Elton Bajwa Jr., PA-C - Last Filed: 08/11/24 20:51>
*Critical Care Note
Total Time (30-74mins, 75-104mins- exclusive of procedures): Not Applicable
ED Attending Note
<Elton Bajwa Jr., PA-C - Last Filed: 08/11/24 20:51>
-
Portions of this chart may have been created with voice recognition software.� Occasional wrong word or��sound alike� substitutions may have occurred due to the inherent limitations of voice recognition software.
<Luis Nunn MD - Last Filed: 08/11/24 18:44>
ED Attending Note
Patient seen and examined by attending physician: Yes
I performed the substantive portion of visit, reviewed & personally made and approve the management plan that is documented in note by myself or HORACIO.: Yes
ED Attending Note:
Patient complaining of mildly irregular heartbeat. No chest pain shortness of breath no syncope. History of A-fib. On Eliquis.
Lungs are clear and equal. Heart mildly irregular but not tachycardic. Baseline heart rate on the monitor is mid 80s to 100. Warm and dry.
Impression rate controlled atrial fibrillation. No CHF. Minimal symptoms. Discussed options of cardioversion versus observation. Given his well rate control and Eliquis patient is comfortable with outpatient follow-up with cardiology. Will hold
on cardioversion at this time
Discharge Plan
Departure
Patient Disposition: Home (Routine Discharge)
Date of Disposition: 08/11/24
Time of Disposition: 18:25
Patient with high blood pressure during this ER visit?: No
Condition: Good
Covid-19: Not Applicable
Discharge Problem:
Atrial fibrillation
Instructions: Atrial Fibrillation (DC)
Prescriptions:
No Action
Eliquis 5 mg Tablet
5 mg PO BID
ascorbic acid (vitamin C) [Vitamin C] 500 mg Tablet
500 mg PO DAILY
rosuvastatin [Crestor] 20 mg Tablet
20 mg PO QPM
atenolol 50 mg Tablet
50 mg PO DAILY Qty: 0 0RF
sildenafil 100 mg Tablet
100 mg PO DAILYPRN PRN (Reason: ED )
cholecalciferol (vitamin D3) [Vitamin D3] 25 mcg (1,000 unit) Tablet
25 mcg PO DAILY
Referrals:
Navarro Castañeda Jr., MD [Family Provider] -
Activity Restrictions/Additional Instructions:
You came to the emergency department today with concerns of atrial fibrillation. Your heart rate was in a safe range and you are anticoagulated. Please closely with your borematic operator for any ongoing symptoms. Return to the emergency department
for any worsening, new or concerning symptoms.
Interventions
Interventions:
*Risk Screen - Suicide Last Done: 08/11/24 16:28
*General Assessment Last Done: 08/11/24 16:28
*Neglect/Abuse Screening Last Done: 08/11/24 16:28
ED- Fall Risk Assessment Last Done: 08/11/24 18:50
*ED COVID-19 Vaccine History Last Done: 08/11/24 16:44
*Nursing Disposition Last Done: 08/11/24 18:50
ED- Cardiac Assessment Last Done: 08/11/24 16:44
ED- Pulmonary Assessment Last Done: 08/11/24 16:44
Discharge Date and Time
Discharge Date/Time: 08/11/24 18:50
Print Language: EGYPTIAN
== END 2024-08-11 18:50 | disposition home or self-care (01) ==
LOC: EMR 16:21
PROVIDERS: EMERGENCY PHYSICIAN Emergency Medicine; FAMILY PHYSICIAN Family Medicine
DX: I48.91 Unspecified atrial fibrillation (principal); I10 Essential (primary) hypertension; E78.00 Pure hypercholesterolemia, unspecified; Z79.01 Long term (current) use of anticoagulants
CPT/HCPCS: 99283; 96360; 80053; 84484; 85025; 85610; 85730; 93005

== ENCOUNTER 2025-10-01 10:58 | Emergency (ER) | payer OTHER, SELFPAY ==
[2025-10-01 11:07] VITALS: BP 143/93
--- NOTE | 2025-10-01 11:32 | ED.GENMED ---
History of Present Illness
General
Chief Complaint: DVT/Possible Blood Clot
Time Seen by Provider: 10/01/25 11:16
History of Present Illness
History of Present Illness:
70-year-old male presents to the emergency department for evaluation of left medial lower leg redness and pain beginning while flying back from a trip to [place]. He is concerned about a DVT. History of A-fib on Eliquis. Able to ambulate with
only minimal discomfort. No fevers or chills. Denies trauma to the area
Past History
Past History
ED Past Medical History: Arrthythmia (A fib), HTN and Hypercholesterolemia
ED Past Surgical History: Other (Hernia repair)
Social History
Tobacco: Non-smoker
Alcohol: Occasional
Personal:
Living: with family
Employment: Employed
Family History
Family History: Other (Mother with history of atrial fibrillation)
Review of Systems
Review of Systems
Allergies reviewed?: Yes
All Other Systems: ROS reviewed and negative except as documented in HPI and ROS
Phy Exam
Physical Exam
Physical Exam:
GEN: Well appearing, NAD, WDWN
HEENT: Oral mucosa moist, no scleral icterus
Cardiac: Regular rate
Lung: No respiratory distress, no tachypnea
MSK: No gross deformity or injuries
Skin: Good color, no pallor or jaundice, linear erythema along the greater saphenous vein tract and the proximal left calf extending to the distal left thigh, tender to palpation, no calf edema, strong left dorsalis pedis pulse
Neuro: AO x3, moves all extremities freely
Psych: Calm, cooperative
Course
Orders/Labs/Results
Orders:
Orders
10/01/25 11:11
US Periph Venous LOWER Ext LT Urgent
Comment:
Reason For Exam: left calf. pt flew home from [place] today
Vital Signs
Initial and Last Documented VS:
Initial Vital Signs
Temp Pulse Resp BP Pulse Ox
97.7 F 63 16 143/93 98
10/01/25 11:07 10/01/25 11:07 10/01/25 11:07 10/01/25 11:07 10/01/25 11:07
Last Documented Vital Signs
Temp Pulse Resp BP Pulse Ox
97.7 F 63 16 143/93 98
10/01/25 11:07 10/01/25 11:07 10/01/25 12:10 10/01/25 11:07 10/01/25 11:33
MDM/Problems Addressed
MDM/Problems Addressed:
Patient's exam and ultrasound are consistent with acute saphenous vein phlebitis. No evidence for DVT. Discussed supportive care, recommended against NSAIDs due to use of anticoagulants, warm compresses and elevation advised
*Pulse Oximetry
SaO2: 98
Oxygen Mode of Delivery: Room air
Patient hypoxic: no
*Critical Care Note
Total Time (30-74mins, 75-104mins- exclusive of procedures): Not Applicable
ED Attending Note
-
Portions of this chart may have been created with voice recognition software.� Occasional wrong word or��sound alike� substitutions may have occurred due to the inherent limitations of voice recognition software.
Discharge Plan
Departure
Patient Disposition: Home (Routine Discharge)
Date of Disposition: 10/01/25
Time of Disposition: 12:07
Patient with high blood pressure during this ER visit?: No
Discharge Problem:
Phlebitis of superficial vein
Instructions: Superficial vein phlebitis and thrombosis
Prescriptions:
No Action
Eliquis 5 mg Tablet
5 mg PO BID
ascorbic acid (vitamin C) [Vitamin C] 500 mg Tablet
500 mg PO DAILY
rosuvastatin [Crestor] 20 mg Tablet
20 mg PO QPM
atenolol 50 mg Tablet
50 mg PO DAILY Qty: 0 0RF
sildenafil 100 mg Tablet
100 mg PO DAILYPRN PRN (Reason: ED )
cholecalciferol (vitamin D3) [Vitamin D3] 25 mcg (1,000 unit) Tablet
25 mcg PO DAILY
Activity Restrictions/Additional Instructions:
Elevate the leg and use warm compresses often
This may take weeks to fully resolve
Return to the ER if you develop a fever or severe worsening redness of the leg
Interventions
Interventions:
*General Assessment Last Done: 10/01/25 11:07
*Neglect/Abuse Screening Last Done: 10/01/25 11:07
*ED COVID-19 Vaccine History Last Done: 10/01/25 11:07
*ED Influenza Vaccine History Last Done: 10/01/25 11:07
[facility] Fall Risk Assessment Tool Last Done: 10/01/25 12:10
*Risk Screen - Suicide (C-SSRS) Last Done: 10/01/25 11:07
*Nursing Disposition Last Done: 10/01/25 12:15
ED- Cardiac Assessment Last Done: 10/01/25 12:10
ED- Pulmonary Assessment Last Done: 10/01/25 12:10
ED-Peripheral Vascular Assessment Last Done: 10/01/25 12:10
ED-Skin Assessment Last Done: 10/01/25 12:10
Discharge Date and Time
Discharge Date/Time: 10/01/25 12:26
Print Language: MOLDOVAN
== END 2025-10-01 12:26 | disposition home or self-care (01) ==
LOC: EMR 10:58
PROVIDERS: EMERGENCY PHYSICIAN Emergency Medicine; FAMILY PHYSICIAN Family Medicine
DX: I80.02 Phlebitis and thrombophlebitis of superficial vessels of left lower extremity (principal); I48.91 Unspecified atrial fibrillation; I10 Essential (primary) hypertension; E78.00 Pure hypercholesterolemia, unspecified; Z79.01 Long term (current) use of anticoagulants; Z82.49 Family history of ischemic heart disease and other diseases of the circulatory system
CPT/HCPCS: 99284; 93971